=== PATIENT | male | born 2000 | race Asian ===

== ENCOUNTER 2021-06-07 02:40 | Emergency (ER) | payer OTHER ==
[~2021-06-07] VITALS: Ht 172.7 cm; Wt 77.3 kg
[2021-06-07 02:50] VITALS: TEMP 97.4
[2021-06-07 03:12] LABS: CALCIUM 8.4 mg/dL (8.4-10.2); POTASSIUM 3.2 mmol/L (3.5-4.5)
[2021-06-07 03:17] LABS: ALBUMIN 4.6 gm/dL (3.5-5.0); CREATININE, serum 1.12 mg/dL (0.72-1.25)
[2021-06-07 06:21] VITALS: BP 109/56; PULSE 74
== END 2021-06-07 06:21 | disposition home or self-care (01) ==
LOC: COL.ER 02:40
PROVIDERS: Emergency Medicine
DX: F10.129 Alcohol abuse with intoxication, unspecified (principal); Y90.6 Blood alcohol level of 120-199 mg/100 ml
CPT/HCPCS: J2405